=== PATIENT | female | born 1945 | race Two or more races ===

== ENCOUNTER 2019-09-08 04:24 | Day surgery (SDC) | payer OTHER ==
[2019-09-08] MEDS ORDERED: MACROBID 100 M100 MG PO (09:18)
[2019-09-08] MEDS ORDERED: ULTRACET PO (09:18)
== END 2019-09-08 13:15 | disposition home or self-care (01) ==
LOC: CIR.AMB 04:24 → EDBD 11:30 → CIR.AMB 13:15
DX: N81.3 Complete uterovaginal prolapse (principal)

== ENCOUNTER 2022-10-02 07:23 | Day surgery (SDC) | payer OTHER ==
[~2022-10-02 07:23] MED LIST: MACROBID 100 M100 MG PO; ULTRACET PO
[2022-10-02] MEDS ORDERED: MACROBID 100 M100 MG PO (10:46)
[2022-10-02] MEDS ORDERED: TRAM1TAB98 PO (10:47)
== END 2022-10-02 12:55 | disposition home or self-care (01) ==
LOC: CIR.AMB 07:23
PROVIDERS: ATTEND Obstetrics & Gynecology Gynecology
DX: N81.11 Cystocele, midline (principal); N81.6 Rectocele; N81.5 Vaginal enterocele